=== PATIENT | male | born 1955 | race Caucasian/White ===

== ENCOUNTER → 2016-06-14 15:01 | Outpatient (CLI) | payer OTHER ==
[2012-04-05 07:48] VITALS: BMI 38.5
== END | disposition home or self-care (01) ==
LOC: D.MRI 15:01
DX: M51.16 Intervertebral disc disorders with radiculopathy, lumbar region (principal)

== ENCOUNTER → 2017-01-25 11:09 | Outpatient (CLI) | payer OTHER ==
[2012-04-05 07:48] VITALS: BMI 38.5
[~2017-01-25 11:09] MED LIST: ALLOPURINOL TAB 300; BAYER CHEWABLE81 MG PO; CATAPRES0.1 MG PO; FLOMAX0.4 MG PO; HYDROCODONE-APA1 TAB PO; LINZESS290 MCG PO; MAXZIDE 75/501 TAB PO; NEURONTIN 300300 MG PO; RANITIDINE
[2017-01-25 11:58] LABS: BASOPHILS 0.3 % (0-2); EOSINOPHILS 2.6 % (0-7); HEMATOCRIT 39.5 % (42.0-54.0); HEMOGLOBIN 13.8 g/dL (13.5-17.5); IMMATURE GRANULOCYTES 0.5 % (0-5); LYMPHOCYTES 20.2 % (15-50); MCH 33.3 pg (26.0-34.0); MCHC 34.9 g/dL (31.0-37.0); MCV 95.4 fL (80.0-100.0); MEAN PLATELET VOLUME 10.5 fL (7.4-10.4); MONOCYTES 10.1 % (2-11); NEUTROPHILS 66.3 % (40-80); PLATELET COUNT 156 10x3/uL (130-400); RBC 4.14 10x6/uL (4.20-6.10); RDW 13.6 % (11.5-14.5); WBC 6.1 10x3/uL (4.8-10.8)
[2017-01-25 12:23] LABS: APTT 30.6 SECONDS (22.8-39.4); INR 1.03 (0.85-1.17); PROTIME 13.4 SECONDS (11.6-15.0)
[2017-01-25 12:34] LABS: % SATURATION 25 % (15-55); IRON 85 ug/dl (35-150); TOTAL IRON BIND CAPACITY 339 ug/dl (260-445); UNSAT IRON BIND CAPACITY 254 ug/dl (150-375)
[2017-01-25 12:40] LABS: ALKALINE PHOSPHATASE 59 U/L (46-116); ALT (SGPT) 71 U/L (10-68); BILIRUBIN - DIRECT 0.13 mg/dL (0.00-0.30); BILIRUBIN - INDIRECT 0.42 mg/dL (0.00-1.00); BILIRUBIN - TOTAL 0.55 mg/dL (0.2-1.3); CALC OSMOLALITY 279 mosm/kg (275-300); CALCIUM 9.3 mg/dL (8.5-10.1); CARBON DIOXIDE 28.3 mmol/L (21.0-32.0); CHLORIDE - SERUM 102 mmol/L (98-107); CHOL - HDL RATIO 4.7 ratio (2.3-4.9); CHOLESTEROL, TOTAL 155 mg/dL (0-200); CREATININE - SERUM 0.9 mg/dL (0.6-1.3); FERRITIN 199 ng/mL (3-244); GAMMA GT 41 U/L (5-85); GLUCOSE 124 mg/dL (74-106); HDL CHOLESTEROL 33 mg/dL (32-96); LDL CHOLESTEROL 95 mg/dL (0-100); LDL-HDL RATIO 2.9 ratio (1.5-3.5); POTASSIUM - SERUM 3.4 mmol/L (3.5-5.1); PROTEIN - SERUM 7.9 g/dL (6.4-8.2); SODIUM 139 mmol/L (136-145); TRIGLYCERIDE 136 mg/dL (30-200); UREA NITROGEN 15 mg/dL (7-18); eGFR NON AFRICAN AMERICAN > 90 mL/min (90-120)
[2017-01-26 08:20] LABS: FOLATE (FOLIC ACID) - SERUM >20.0 ng/mL (>3.0)
[2017-01-26 11:19] LABS: HAPTOGLOBIN 98 mg/dL (34-200); HEPATITIS C ANTIBODY 0.2 (0.0-0.9)
[2017-01-26 13:18] LABS: ALPHA FETOPROTEIN -(TUMOR MRK) 1.9 ng/mL (0.0-8.3); ANA REFLEX - DIRECT Negative (Negative)
[2017-01-27 14:21] LABS: MITOCHONDRIAL ANTIBODY 11.2 Units (0.0-20.0); SMOOTH MUSCLE ABS (ACTIN) 13 Units (0-19)
[2017-03-04 06:22] VITALS: BMI 41.4
== END | disposition home or self-care (01) ==
LOC: D.LAB 11:09
PROVIDERS: Internal Medicine Gastroenterology
DX: K76.0 Fatty (change of) liver, not elsewhere classified (principal); R74.8 Abnormal levels of other serum enzymes

== ENCOUNTER 2017-03-04 05:05 | Day surgery (SDC) | payer OTHER ==
[~2017-03-04] VITALS: Ht 175.3 cm; Wt 127.3 kg
[2017-03-04] MEDS ORDERED: HYDROCODONE-APA1 TAB PO (06:18)
[2017-03-04] MEDS ORDERED: CATAPRES0.1 MG PO (06:18)
[2017-03-04] MEDS ORDERED: FLOMAX0.4 MG PO (06:19)
[2017-03-04] MEDS ORDERED: NEURONTIN 300300 MG PO (06:19)
[2017-03-04] MEDS ORDERED: ALLOPURINOL TAB 300 (06:19)
[2017-03-04] MEDS ORDERED: RANITIDINE (06:19)
[2017-03-04] MEDS ORDERED: LINZESS290 MCG PO (06:20)
[2017-03-04] MEDS ORDERED: BAYER CHEWABLE81 MG PO (06:20)
[2017-03-04] MEDS ORDERED: MAXZIDE 75/501 TAB PO (06:20)
[2017-03-04 06:22] VITALS: BP 137/77; Ht 175.3 cm; Wt 127.3 kg
[2017-03-04 06:48] LABS: HEMATOCRIT 38.9 % (42.0-54.0); HEMOGLOBIN 13.4 g/dL (13.5-17.5); MCH 33.2 pg (26.0-34.0); MCHC 34.4 g/dL (31.0-37.0); MCV 96.3 fL (80.0-100.0); MEAN PLATELET VOLUME 10.7 fL (7.4-10.4); RBC 4.04 10x6/uL (4.20-6.10); RDW 14.1 % (11.5-14.5); WBC 7.9 10x3/uL (4.8-10.8)
--- NOTE | 2017-03-04 09:06 | NUR ---
PATIENT TURNED PRONE ON BACK FRAME ALL AREAS CHECKED PADDED AND SECURED WITH NO IMPINGEMENTS, GENTALIA CHECKED AND FREE OF IMPINGEMENT WELL, JESSICA.
--- NOTE | 2017-03-04 09:59 | NUR ---
0736 DR BORDEN HERE, CONSCENT SIGNED, H+P COMPLETE ANTIBIOTIC ORDER RECIEVED.
--- NOTE | 2017-03-04 10:29 | NUR ---
NEURO CHECKS INTACT
--- NOTE | 2017-03-04 10:44 | NUR ---
1040-RECD TO ROOM FROM PACU. AROUSES EASILY. DENIES PAIN/NAUSEA. LUMBAR DRESSING DRY AND INTACT. RESP WITH EASE.
--- NOTE | 2017-03-04 11:34 | NUR ---
1040-RECD TO ROOM FROM PACU. AROUSES TO NAME CALL. DENIES PAIN/NAUSEA. IV PATENT. 1100-DR BORDEN HERE TO SEE PATIENT. 1130-NORCO 10MG 1 GIVEN PER COMPLAINT OF PAIN RATED 5.
--- NOTE | 2017-03-09 09:58 | OP ---
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 PROCEDURE: Lumbar laminectomy, medial facetectomy, and foraminotomy with discectomy at L5-S1 on the right with METRx retractor. DESCRIPTION AND TECHNIQUE: After induction of general endotracheal anesthesia, the patient was rolled prone on a Miles frame. Lumbar spine was prepped and draped in usual sterile fashion with fluoroscopic x-ray and a spinal needle. A stab incision was created with #11 blade and a series of dilators was used to advance the METRx retractor at the L5-S1 interspace on the right side. Flow was confirmed with fluoroscopic x-ray. A microscope and Midas Jose Angel drill were used to perform laminotomy, medial facetectomy, and foraminotomy at L5-S1 on the right. Hypertrophied ligamentum flavum was removed with Cloward rongeurs to decompress the dura over the nerve root and the central dura. Obvious free fragment disc herniation was identified just deep to the S1 nerve root. This was removed with pituitary rongeurs and curettes. Following this, additional material was removed from the disc space. Meticulous hemostasis was maintained. The wound was irrigated with copious amounts of Ancef irrigant solution. The fascia was closed with 2-0 Vicryl suture, the subdermal layer was closed with 3-0 Vicryl suture. The skin was reapproximated with raul. A sterile dressing was applied to the wound. The patient was awakened in good condition and taken to recovery. All counts were reported as correct. Estimated blood loss was minimal. TRANSINT:[id number] Voice Confirmation ID: [id number] DOCUMENT ID: [id number] RAJESH BORDEN MD at 0958 CC: [id number] DICTATION DATE: 03/08/172158 WORD PROCESSING MACHINE OPERATOR: 03/09/17 0214 [facility] 03/04/17 [place] [address]
== END 2017-03-04 12:45 | disposition home or self-care (01) ==
LOC: D.OPS 05:05
PROVIDERS: Anesthesiology
DX: M51.17 Intervertebral disc disorders with radiculopathy, lumbosacral region (principal); J44.9 Chronic obstructive pulmonary disease, unspecified; K21.9 Gastro-esophageal reflux disease without esophagitis; I10 Essential (primary) hypertension; Z01.812 Encounter for preprocedural laboratory examination

== ENCOUNTER → 2017-05-20 08:14 | Outpatient (CLI) | payer OTHER ==
[2017-03-04 06:22] VITALS: BMI 41.4
[2017-05-20 09:12] LABS: ALBUMIN 3.8 g/dL (3.4-5.0); BILIRUBIN - DIRECT 0.18 mg/dL (0.00-0.30); BILIRUBIN - INDIRECT 0.3 mg/dL (0.00-1.00); BILIRUBIN - TOTAL 0.48 mg/dL (0.2-1.3); PROTEIN - SERUM 7.6 g/dL (6.4-8.2)
== END | disposition home or self-care (01) ==
LOC: D.US 08:14
PROVIDERS: Internal Medicine Gastroenterology
DX: K76.0 Fatty (change of) liver, not elsewhere classified (principal)

== ENCOUNTER → 2017-11-22 08:36 | Outpatient (CLI) | payer OTHER ==
[2017-03-04 06:22] VITALS: BMI 41.4
[2017-11-22 09:54] LABS: ALBUMIN 3.7 g/dL (3.4-5.0); BILIRUBIN - DIRECT 0.14 mg/dL (0.00-0.30); BILIRUBIN - INDIRECT 0.14 mg/dL (0.00-1.00); BILIRUBIN - TOTAL 0.28 mg/dL (0.2-1.3); PROTEIN - SERUM 7.1 g/dL (6.4-8.2)
== END | disposition home or self-care (01) ==
LOC: D.LAB 08:00 → D.US 09:00
PROVIDERS: Internal Medicine Gastroenterology
DX: K76.0 Fatty (change of) liver, not elsewhere classified (principal)

== ENCOUNTER → 2020-07-16 08:39 | Outpatient (CLI) | payer MEDICARE ==
[2017-03-04 06:22] VITALS: BMI 41.4
== END | disposition home or self-care (01) ==
LOC: D.HCCECHO 08:39
PROVIDERS: ATTEND Internal Medicine Cardiovascular Disease
DX: I10 Essential (primary) hypertension (principal); I34.0 Nonrheumatic mitral (valve) insufficiency

== ENCOUNTER → 2020-08-19 20:35 | Outpatient (CLI) | payer MEDICARE ==
[2017-03-04 06:22] VITALS: BMI 41.4
== END | disposition home or self-care (01) ==
LOC: D.LABREF 20:35
PROVIDERS: ATTEND Orthopaedic Surgery
DX: M19.011 Primary osteoarthritis, right shoulder (principal)

== ENCOUNTER 2020-09-09 07:30 | Observation (INO) | payer MEDICARE ==
[2020-09-05 10:24] LABS: BASOPHILS 0.5 % (0-2); EOSINOPHILS 3.7 % (0-7); HEMOGLOBIN 14.4 g/dL (13.5-17.5); LYMPHOCYTES 26.9 % (15-50); MCH 33.2 pg (26.0-34.0); MCHC 34.4 g/dL (31.0-37.0); MCV 96.7 fL (80.0-100.0); MEAN PLATELET VOLUME 8.6 fL (7.4-10.4); MONOCYTES 12.3 % (2-11); NEUTROPHILS 56.6 % (40-80); PLATELET COUNT 156 10x3/uL (130-400); RBC 4.35 10x6/uL (4.20-6.10); RDW 13.5 % (11.5-14.5)
[2020-09-05 10:33] LABS: APTT 34.6 SECONDS (22.8-39.4); INR 1.2 (0.85-1.17)
[2020-09-05 10:34] LABS: CALC OSMOLALITY 283 mosm/kg (275-300); CALCIUM 9.3 mg/dL (8.5-10.1); CARBON DIOXIDE 27.5 mmol/L (21.0-32.0); CHLORIDE - SERUM 105 mmol/L (98-107); CREATININE - SERUM 0.9 mg/dL (0.6-1.3); GLUCOSE 107 mg/dL (74-106); POTASSIUM - SERUM 3.7 mmol/L (3.5-5.1); SODIUM 139 mmol/L (136-145); UREA NITROGEN 28 mg/dL (7-18); eGFR NON AFRICAN AMERICAN 90 mL/min (90-120)
[2020-09-05 10:45] LABS: BILIRUBIN NEGATIVE (NEGATIVE); KETONE NEGATIVE mg/dL (< 1+); NITRITE NEGATIVE (NEGATIVE); UROBILINOGEN NORMAL mg/dL (< 2)
[2020-09-09] VITALS (14 sets, daily range): BP systolic 113–154; BP diastolic 53–73; Ht 175.3 cm; Wt 97.7 kg
[~2020-09-09] VITALS: Ht 175.3 cm; Wt 97.7 kg
[~2020-09-09 07:30] MED LIST changes: +CIALIS2.5 MG; +MULTI-DAY VITAM1 TAB PO; +PEPCID40 MG PO; +PROSCAR5 MG PO; +VITAMIN B; +VITAMIN D325 MC1 PO
--- NOTE | 2020-09-09 11:41 | NUR ---
PATIENT TO ROOM WITH IV INTACT. BSCDS PLACED ON PATIENT AND ARE WORKING. VS STABLE. AWAKE AND ALERT WITH NO COMPLAINTS OF PAIN. DRAIN INTACT. RIGHT ARM INCISION WITH DRESSING CDI. SLING ON. FAMILY AT BEDSIDE. CALL LIGHT WITHIN REACH.
--- NOTE | 2020-09-09 11:43 | NUR ---
PATIENT IN BED WITH IV INTACT. NO COMPLAINTS OR SIGNS OF DISTRESS. FAMILY AT BEDSIDE. DRAIN INTACT. BSCDS ON AND WORKING. CALL LIGHT WITHIN REACH.
--- NOTE | 2020-09-09 14:08 | OP ---
PATIENT NAME: JUAN ANTONIO VALENCIA MEDICAL RECORD: [id number] :53 LOCATION:[facility] ADMISSION DATE:09/09/20 SURGEON: JUAN ANTONIO RODRIGUEZ DO DATE OF OPERATION: 09/09/2020 PROCEDURE PERFORMED: Right reverse total shoulder arthroplasty. PREOPERATIVE DIAGNOSIS: Right shoulder rotator cuff tear arthropathy. POSTOPERATIVE DIAGNOSIS: Right shoulder rotator cuff tear arthropathy. INDICATIONS: Mr. Valencia is a 65-year-old male who has had right shoulder pain for quite some time. He has tried all manner nonoperative treatments to no avail. He was tried of dealing with the pain and wanted something done surgically. I informed him after getting the MRI showing the full thickness rotator cuff tear with atrophy in the muscle belly, reverse would be the best option for him. He was okay with that. He is aware of the risks including fracture, dislocation, bleeding, damage to nerves or vessels, need for further surgery, continued pain, failure of implants, need for further surgery, infection and he signed a consent. SURGEON: Juan Antonio Rodriguez DO DESCRIPTION OF THE PROCEDURE: The patient was taken to the operative suite, after given a block by anesthesia in the preoperative area, laid in the supine position, sedated and LMA was placed. He was then placed in the beach chair position after given 900 mg of clindamycin and a gram of TXA. Then, the right shoulder was prepped and draped in sterile fashion. A timeout was performed. Everyone was in agreement with correct side, site, patient and procedure. I then began by marking out the incision along the deltopectoral interval and made careful dissection down to the cephalic vein, took the cephalic vein lateral, freed off the adhesions of the deltoid with a Partida and then put a deltoid retractor and I then released the proximal centimeter of the pec attachment on the humerus, found the long head of the biceps tendon what was left of it and tagged it to the pec tendon and then followed the bicipital groove up into the shoulder opening interval up and tagged the subscap what was left of it, peeled it off the lesser tuberosity. I then cut the humerus, exposed the glenoid, removed the labrum. I put a centering pin in the glenoid and then reamed and then impacted on the baseplate, put in a 30 central screw and a 30 superior anterior and then 25 posterior superior and posterior inferior screws holding the plate nicely. I then impacted on the +3 glenosphere with maximum offset inferiorly. I then exposed the humerus and reamed and broached to a 12, 12 fit very well. I then trialed the standard tray and it had good motion and was very secure. Had good tension on the conjoined tendon as well as the deltoid fibers. I then dislocated that and removed the trials and irrigated and then put in the stem in the tray and reduced it after impacting the tray on the stem. I then irrigated with the povidone and iodine mixture and irrigated out with a liter of normal saline. I then put in a drain exiting posteriorly, put in Heydi and vancomycin and tobramycin powder. Jared Caal, board certified family physician closed the skin with 2-0 Vicryl in inverted interrupted fashion, 4-0 Monocryl in the skin and then Prineo glue on the skin. I then secured the drain with two Tegaderms and placed a Telfa and Tegaderm on the incision site. He was then awakened and taken to recovery in stable condition. BLOOD LOSS: Approximately 200 mL. OPERATIVE REPORT [id number] JUAN ANTONIO VALENCIA COMPLICATIONS: None. He was then given another gram of TXA prior to leaving the OR. TRANSINT:[id number] Voice Confirmation ID: [id number] DOCUMENT ID: [id number] JUAN ANTONIO RODRIGUEZ DO at 1408 CC: [id number] DICTATION DATE: 09/09/20 1147 WOODWORKING MACHINE OFFBEARER: 09/09/20 1253 [facility] [place] [id number] [place] [address]
--- NOTE | 2020-09-09 18:42 | MORECARE ---
CASE MANAGEMENT DISCHARGE SUMMARY PATIENT: JUAN ANTONIO VALENCIA UNIT: [id number] ADM DATE: 09/09/20 AGE: 65 : 54 SEX: M ROOM/BED: D.2225 AUTHOR: JUSTEN,DOC PHYSICIAN: REFERRING PHYSICIAN: JUAN ANTONIO RODRIGUEZ DO DATE OF SERVICE: 09/09/20 Case Management Discharge Planning Summary DCP REVIEW SUMMARY ANTICIPATED D/C DATE: EXPECTED LOS : CASE STATUS: DCP Initiated INITIAL REVIEW: 09/09/2020 INITIAL REVIEWER: Carmelo Chou FINAL DISCHARGE DISPOSITION: : FINAL REVIEWER: FINAL REVIEW DATE: DCP Focus Questions & Answers QUESTION: ANSWER : PATIENT: JUAN ANTONIO VALENCIA ENCOUNTER: [id number] MEDICAL RECORD#: [id number] ADMISSION DATE: 09/09/2020 DISCHARGE DATE: ATTENDING MD: JUAN ANTONIO NOWAK : AGE: 65 MARITAL STATUS: D DC PLAN ID: [id number] FACILITY: [facility] PRINTED ON: 09/09/20 18:42 CT All edits/amendments must be made on the electronic document DICTATION DATE: 09/09/201841 SUPERVISOR FIBER LOCKING: DM 09/09/201841 RPT#: [id number] DC DATE: STATUS: ADM IN [facility] [address] [place] [address] END OF REPORT
--- NOTE | 2020-09-09 18:52 | MORECARE ---
CASE MANAGEMENT DISCHARGE SUMMARY PATIENT: JUAN ANTONIO VALENCIA UNIT: [id number] ADM DATE: 09/09/20 AGE: 65 : 54 SEX: M ROOM/BED: D.2225 AUTHOR: JUSTEN,GE PHYSICIAN: REFERRING PHYSICIAN: JUAN ANTONIO RODRIGUEZ DO DATE OF SERVICE: 09/09/20 Case Management Discharge Planning Summary COMMENTS ENTERED DATE: 09/09/20 18:43 CT COMMENT TYPE: Discharge Planning REVIEWER: Carmelo Chou CM met with patient to complete DC plan and to evaluate needs. Patient lives independently alone with strong support. Patient stated that Peg Tyler, is his person to notify. Patient stated that his home is safe and has electricity and running water. Patient stated that he is able to enter and move about his home without difficulty and he neither uses or needs any mobility equipment. Patient stated that he has no problems paying for medications and [facility]. Patient stated that his primary care physician is Dr. Buck. At discharge, the patient plans to return home and feels this is a safe discharge. CM discussed availability of home health, rehab services, and medical equipment. Patient declined HHS, SNF, IPR, and DME. Patient voiced no other needs at this time and is satisfied with DC plan. Transportation provider at discharge will be with [employer]. [facility] delivered, explained. Patient declined to sign, form placed in chart. Copy of form also left with the patient. CM will continue to follow and will assist as needed with dc plans/needs. DCP REVIEW SUMMARY ANTICIPATED D/C DATE: EXPECTED LOS : CASE STATUS: DCP Initiated INITIAL REVIEW: 09/09/2020 INITIAL REVIEWER: Carmelo Chou FINAL DISCHARGE DISPOSITION: : FINAL REVIEWER: FINAL REVIEW DATE: DCP Focus Questions & Answers DCP Evaluation QUESTION: ANSWER Patient and/or caregiver agree upon recommended discharge plan? : Yes Family / Caregiver's ability to cope with chronic illness: : a. Adequate (ability to meet patient's medical needs, ensures patient attends medical appts.) Patient's current cognitive status: : *Oriented to person, place, situation, time and present Patient's ability to cope with chronic illness : d. No chronic illness Patient gives permission to discuss discharge plans with: (name, relationship and number) : Peg Scott, Does the patient have the ability to pay for or attain post discharge needs / services? : Yes Functional screen assessment: : Basic needs can adequately be met by self Family / Caregiver's ability to cope with chronic illness: : a. Adequate (ability to meet patient's medical needs, ensures patient attends medical appts.) Physical Status: : Independent with ADL's Equipment needed for post hospitalization: : None Is there a likelihood that the patient will require additional services to return to the preadmission environment? : No Living Arrangements: : Home Alone with Support Patient with capacity for self-care or can be cared for in same environment as prior to hospitalization? : Yes Baseline cognitive status: : *Oriented to person, place, situation, time and present Physical environment modification needed / anticipated for discharge: : No Medication Management: : Patient states can read and understand medication labels Medication Management: : Patient states can afford medications Pharmacy name(s): : [facility] Does Patient have transportation to get home and to follow-up medical appointments when discharged from the hospital? : Yes Would patient like to participate in any Care Coordination programs (if applicable): : Not applicable Does the patient have electricity at home? : Yes Does the patient have running water in their house? : Yes Equipment in use: : None Mental health screen: : No mental health history DCP Re-evaluation QUESTION: ANSWER Would patient like to participate in any Care Coordination programs (if applicable): : Not applicable PATIENT: JUAN ANTONIO VALENCIA ENCOUNTER: [id number] MEDICAL RECORD#: [id number] ADMISSION DATE: 09/09/2020 DISCHARGE DATE: ATTENDING MD: JUAN ANTONIO NOWAK : AGE: 65 MARITAL STATUS: D DC PLAN ID: [id number] FACILITY: [facility] PRINTED ON: 09/09/20 18:52 CT All edits/amendments must be made on the electronic document DICTATION DATE: 09/09/201851 MAINFRAME SYSTEMS ENGINEER: ROSMERY 09/09/201851 RPT#: [id number] DC DATE: STATUS: ADM IN [facility] [address] [place] [address] END OF REPORT
--- NOTE | 2020-09-09 18:54 | NUR ---
PATIENT IN BED WITH IV INTACT. NO COMPLAINTS OR SIGNS OF DISTRESS. BSCDS ON AND WORKING. CALL LIGHT WITHIN REACH. VS STABLE. IS ABLE TO PERFORM IS ON OWN AND IS DOING IT.
--- NOTE | 2020-09-09 20:00 | NUR ---
RECIEVED BEDSIDE REPORT. RESTING IN BED WITH FAMILY PRESENT. S/P REVERSE TOTAL RIGHT SHOULDER REPAIR. DRESSING C/D/I AND SPLINT IN PLACE. LEFT WRIST PIV PATENT WITH DRESSING C/D/I INFUSING. DAVOL DRAIN INTACT AND COMPRESSED WITH SCANT AMOUNT OF OUTPUT. NO C/O PAIN OR DISCOMFORT AT THIS TIME. EDCUATION PROVIDED FOR I/S, CALL LIGHT/NEEDS. CALL LIGHT IN PLACE, BED LOCKED IN LOW POSITION.
[2020-09-10 03:53] VITALS: BP 131/57
[2020-09-10 06:18] LABS: BASOPHILS 0.1 % (0-2); EOSINOPHILS 0.1 % (0-7); HEMATOCRIT 33.8 % (42.0-54.0); HEMOGLOBIN 11.8 g/dL (13.5-17.5); LYMPHOCYTES 6.9 % (15-50); MCH 33.6 pg (26.0-34.0); MCV 96.2 fL (80.0-100.0); MEAN PLATELET VOLUME 9.1 fL (7.4-10.4); MONOCYTES 6.9 % (2-11); PLATELET COUNT 132 10x3/uL (130-400); RBC 3.51 10x6/uL (4.20-6.10); RDW 13.7 % (11.5-14.5); WBC 9.4 10x3/uL (4.8-10.8)
[2020-09-10 06:38] LABS: ALBUMIN 3.2 g/dL (3.4-5.0); ALKALINE PHOSPHATASE 39 U/L (30-120); ALT (SGPT) 27 U/L (10-68); BILIRUBIN - TOTAL 0.28 mg/dL (0.2-1.3); CALC OSMOLALITY 281 mosm/kg (275-300); CALCIUM 7.9 mg/dL (8.5-10.1); CARBON DIOXIDE 26.4 mmol/L (21.0-32.0); CHLORIDE - SERUM 107 mmol/L (98-107); CREATININE - SERUM 0.9 mg/dL (0.6-1.3); GLUCOSE 134 mg/dL (74-106); POTASSIUM - SERUM 3.7 mmol/L (3.5-5.1); PROTEIN - SERUM 6.1 g/dL (6.4-8.2); SODIUM 140 mmol/L (136-145); UREA NITROGEN 15 mg/dL (7-18); eGFR NON AFRICAN AMERICAN 90 mL/min (90-120)
[2020-09-10] MEDS ORDERED: PERCOCET 5-3251 TAB PO (07:01)
[2020-09-10 07:41] VITALS: BP 115/54
[2020-09-10 11:03] VITALS: BP 134/62
--- NOTE | 2020-09-10 16:19 | NUR ---
DAVOL DRAIN D/C WITHOUT COMPLICATIONS OR DIFFICULTY. PATIENT TOLERATED WITHOUT C/O PAIN OR DISCOMFORT.
--- NOTE | 2020-09-10 16:20 | NUR ---
I have reviewed this patient and I concur with the Shift Assessment completed by the Licensed Practical Nurse today this shift.
--- NOTE | 2020-09-10 16:31 | MORECARE ---
CASE MANAGEMENT DISCHARGE SUMMARY PATIENT: JUAN ANTONIO VALENCIA UNIT: [id number] ADM DATE: 09/09/20 AGE: 65 : 54 SEX: M ROOM/BED: D.2225 AUTHOR: JUSTEN,GE PHYSICIAN: REFERRING PHYSICIAN: JUAN ANTONIO RODRIGUEZ DO DATE OF SERVICE: 09/10/20 Case Management Discharge Planning Summary COMMENTS ENTERED DATE: 09/09/20 18:43 CT COMMENT TYPE: Discharge Planning REVIEWER: Carmelo Chou CM met with patient to complete DC plan and to evaluate needs. Patient lives independently alone with strong support. Patient stated that Peg Tyler, is his person to notify. Patient stated that his home is safe and has electricity and running water. Patient stated that he is able to enter and move about his home without difficulty and he neither uses or needs any mobility equipment. Patient stated that he has no problems paying for medications and he [facility] his [facility]. Patient stated that his primary care physician is Dr. Buck. At discharge, the patient plans to return home and feels this is a safe discharge. CM discussed availability of home health, rehab services, and medical equipment. Patient declined HHS, SNF, IPR, and DME. Patient voiced no other needs at this time and is satisfied with DC plan. Transportation provider at discharge will be with [employer]. [facility] delivered, explained. Patient declined to sign, form placed in chart. Copy of form also left with the patient. CM will continue to follow and will assist as needed with dc plans/needs. DCP REVIEW SUMMARY ANTICIPATED D/C DATE: EXPECTED LOS : CASE STATUS: DCP Initiated INITIAL REVIEW: 09/09/2020 INITIAL REVIEWER: Carmelo Chou FINAL DISCHARGE DISPOSITION: : FINAL REVIEWER: FINAL REVIEW DATE: DCP Focus Questions & Answers DCP Evaluation QUESTION: ANSWER Patient and/or caregiver agree upon recommended discharge plan? : Yes Family / Caregiver's ability to cope with chronic illness: : a. Adequate (ability to meet patient's medical needs, ensures patient attends medical appts.) Patient's current cognitive status: : *Oriented to person, place, situation, time and present Patient's ability to cope with chronic illness : d. No chronic illness Patient gives permission to discuss discharge plans with: (name, relationship and number) : Peg Scott, Does the patient have the ability to pay for or attain post discharge needs / services? : Yes Functional screen assessment: : Basic needs can adequately be met by self Family / Caregiver's ability to cope with chronic illness: : a. Adequate (ability to meet patient's medical needs, ensures patient attends medical appts.) Physical Status: : Independent with ADL's Equipment needed for post hospitalization: : None Is there a likelihood that the patient will require additional services to return to the preadmission environment? : No Living Arrangements: : Home Alone with Support Patient with capacity for self-care or can be cared for in same environment as prior to hospitalization? : Yes Baseline cognitive status: : *Oriented to person, place, situation, time and present Physical environment modification needed / anticipated for discharge: : No Medication Management: : Patient states can read and understand medication labels Medication Management: : Patient states can afford medications Pharmacy name(s): : [facility] Does Patient have transportation to get home and to follow-up medical appointments when discharged from the hospital? : Yes Would patient like to participate in any Care Coordination programs (if applicable): : Not applicable Does the patient have electricity at home? : Yes Does the patient have running water in their house? : Yes Equipment in use: : None Mental health screen: : No mental health history DCP Re-evaluation QUESTION: ANSWER Would patient like to participate in any Care Coordination programs (if applicable): : Not applicable PATIENT: JUAN ANTONIO VALENCIA ENCOUNTER: [id number] MEDICAL RECORD#: [id number] ADMISSION DATE: 09/09/2020 DISCHARGE DATE: 09/10/2020 ATTENDING MD: JUAN ANTONIO NOWAK : AGE: 65 MARITAL STATUS: D DC PLAN ID: [id number] FACILITY: [facility] PRINTED ON: 09/10/20 16:31 CT All edits/amendments must be made on the electronic document DICTATION DATE: 09/10/201630 MANAGER SURGICAL: ROSMERY 09/10/20 163 RPT#: [id number] DC DATE:09/10/20 STATUS: DIS IN [facility] [address] [place] [address] END OF REPORT
--- NOTE | 2020-09-11 07:58 | MORECARE ---
CASE MANAGEMENT DISCHARGE SUMMARY PATIENT: JUAN ANTONIO VALENCIA UNIT: [id number] ADM DATE: 09/09/20 AGE: 65 : 54 SEX: M ROOM/BED: D.2225 AUTHOR: JUSTEN,GE PHYSICIAN: REFERRING PHYSICIAN: JUAN ANTONIO RODRIGUEZ DO DATE OF SERVICE: 09/11/20 Case Management Discharge Planning Summary COMMENTS ENTERED DATE: 09/09/20 18:43 CT COMMENT TYPE: Discharge Planning REVIEWER: Carmelo Chou CM met with patient to complete DC plan and to evaluate needs. Patient lives independently alone with strong support. Patient stated that Peg Tyler, is his person to notify. Patient stated that his home is safe and has electricity and running water. Patient stated that he is able to enter and move about his home without difficulty and he neither uses or needs any mobility equipment. Patient stated that he has no problems paying for medications and [facility]. Patient stated that his primary care physician is Dr. Buck. At discharge, the patient plans to return home and feels this is a safe discharge. CM discussed availability of home health, rehab services, and medical equipment. Patient declined HHS, SNF, IPR, and DME. Patient voiced no other needs at this time and is satisfied with DC plan. Transportation provider at discharge will be with [employer]. [employer] delivered, explained. Patient declined to sign, form placed in chart. Copy of form also left with the patient. CM will continue to follow and will assist as needed with dc plans/needs. DCP REVIEW SUMMARY ANTICIPATED D/C DATE: EXPECTED LOS : CASE STATUS: DCP Initiated INITIAL REVIEW: 09/09/2020 INITIAL REVIEWER: Carmelo Chou FINAL DISCHARGE DISPOSITION: : FINAL REVIEWER: FINAL REVIEW DATE: DCP Focus Questions & Answers DCP Evaluation QUESTION: ANSWER Patient and/or caregiver agree upon recommended discharge plan? : Yes Family / Caregiver's ability to cope with chronic illness: : a. Adequate (ability to meet patient's medical needs, ensures patient attends medical appts.) Patient's current cognitive status: : *Oriented to person, place, situation, time and present Patient's ability to cope with chronic illness : d. No chronic illness Patient gives permission to discuss discharge plans with: (name, relationship and number) : Peg Scott, Does the patient have the ability to pay for or attain post discharge needs / services? : Yes Functional screen assessment: : Basic needs can adequately be met by self Family / Caregiver's ability to cope with chronic illness: : a. Adequate (ability to meet patient's medical needs, ensures patient attends medical appts.) Physical Status: : Independent with ADL's Equipment needed for post hospitalization: : None Is there a likelihood that the patient will require additional services to return to the preadmission environment? : No Living Arrangements: : Home Alone with Support Patient with capacity for self-care or can be cared for in same environment as prior to hospitalization? : Yes Baseline cognitive status: : *Oriented to person, place, situation, time and present Physical environment modification needed / anticipated for discharge: : No Medication Management: : Patient states can read and understand medication labels Medication Management: : Patient states can afford medications Pharmacy name(s): : [facility] Does Patient have transportation to get home and to follow-up medical appointments when discharged from the hospital? : Yes Would patient like to participate in any Care Coordination programs (if applicable): : Not applicable Does the patient have electricity at home? : Yes Does the patient have running water in their house? : Yes Equipment in use: : None Mental health screen: : No mental health history DCP Re-evaluation QUESTION: ANSWER Would patient like to participate in any Care Coordination programs (if applicable): : Not applicable PATIENT: JUAN ANTONIO VALENCIA ENCOUNTER: [id number] MEDICAL RECORD#: [id number] ADMISSION DATE: 09/09/2020 DISCHARGE DATE: 09/10/2020 ATTENDING MD: JUAN ANTONIO NOWAK : AGE: 65 MARITAL STATUS: D DC PLAN ID: [id number] FACILITY: [facility] PRINTED ON: 09/11/20 7:58 CT All edits/amendments must be made on the electronic document DICTATION DATE: 09/11/20757 EXERCISE SCIENCE INSTRUCTOR: ROSMERY 09/11/20757 RPT#: [id number] DC DATE:09/10/20 STATUS: DIS IN [place] [id number] [place] [address] END OF REPORT
== END 2020-09-10 16:24 | disposition home or self-care (01) ==
LOC: D.MS 07:30 → D.OPS 07:30 → D.MS 09:00 → OBSVTIME 09:02 → D.OPS 09:02 → D.MS 09:02 → D.OPS 09:30 → D.MS 09-10 16:24
PROVIDERS: Emergency Medicine; ADMIT Orthopaedic Surgery; ATTEND Orthopaedic Surgery
DX: M75.101 Unspecified rotator cuff tear or rupture of right shoulder, not specified as traumatic (principal); M19.211 Secondary osteoarthritis, right shoulder; E11.65 Type 2 diabetes mellitus with hyperglycemia; K21.9 Gastro-esophageal reflux disease without esophagitis; E66.9 Obesity, unspecified; N40.0 Benign prostatic hyperplasia without lower urinary tract symptoms; M10.9 Gout, unspecified; G89.29 Other chronic pain; Z87.891 Personal history of nicotine dependence